=== PATIENT | male | born 1975 | race Caucasian/White ===

== ENCOUNTER 2018-03-02 09:03 | Day surgery (SDC) | payer OTHER ==
[~2018-03-02 09:03] MED LIST: CEFAZOLIN 2 GM/50 ML (PMX) 50 ML IVPB; SOD CHLORIDE 0.9% 1,000 ML IV
[2018-03-02] MEDS ORDERED: FENTAnyl 50 MCG/ML VIAL IV ×3 (10:00)
[2018-03-02] MEDS ORDERED: OXYCODONE/ACETAMINOPHEN (5/325) TAB PO ×3 (10:00→12:30)
[2018-03-02] MEDS ORDERED: ALBUTEROL 0.083% (NEB) 2.5 MG/3 ML AMP HHN (10:00)
[2018-03-02] MEDS ORDERED: METOCLOPRAMIDE 10 MG INJ IV (10:00)
[2018-03-02] MEDS ORDERED: DIPHENHYDRAMINE 50 MG INJ IV (10:00)
[2018-03-02] MEDS ORDERED: HYDROmorphONE 1 MG/5 ML IV SYRINGE IV (10:00)
[2018-03-02] MEDS ORDERED: ROPIVACAINE 0.5 % 30 ML VIAL (10:12)
[2018-03-02] MEDS ORDERED: FENTAnyl 50 MCG/ML VIAL ×5 (10:12→11:43)
[2018-03-02] MEDS ORDERED: MIDAZOLAM 1 MG/ML 2 ML INJ (10:19)
[2018-03-02] MEDS ORDERED: LABETALOL HCL 20MG INJ (10:34)
[2018-03-02] MEDS ORDERED: LIDOCAINE 100 MG SYRINGE (10:34)
[2018-03-02] MEDS ORDERED: ROCURONIUM 50 MG INJ (10:34)
[2018-03-02] MEDS ORDERED: SUCCINYLCHOLINE CHLORIDE 100 MG/5 ML SYG IV (10:34)
[2018-03-02] MEDS ORDERED: CEFAZOLIN 1 GM INJ (10:34)
[2018-03-02] MEDS: POLYMYXIN/BACITRACIN 1L IRRIG IRR ×2 (10:43→12:40)
[2018-03-02] MEDS ORDERED: POLYMYXIN/BACITRACIN 1L IRRIG (10:54)
[2018-03-02] MEDS ORDERED: HYDROmorphONE 2 MG/ML SYG (12:04)
[2018-03-02] MEDS ORDERED: morphine 2 MG INJ IV (12:30)
[2018-03-02] MEDS ORDERED: IBUPROFEN 600 MG TAB PO (12:30)
[2018-03-02] MEDS ORDERED: ONDANSETRON 4 MG INJ IV (12:30)
[2018-03-02] MEDS ORDERED: KETOROLAC 30 MG INJ IV (12:30)
[2018-03-02] MEDS: BUPIVACAINE 0.5%/EPI (SDV) 30 ML INJ (12:40)
[2018-03-02] MEDS: ONDANSETRON 4 MG INJ IV (12:51)
[2018-03-02] MEDS: HYDROmorphONE 1 MG/5 ML IV SYRINGE IV ×2 (12:51→12:59)
[2018-03-02] MEDS: MEPERIDINE 25 MG INJ IV (12:52)
== END 2018-03-02 16:52 | disposition home or self-care (01) ==
LOC: SDS 09:03
DX: K40.20 Bilateral inguinal hernia, without obstruction or gangrene, not specified as recurrent (principal)
CPT/HCPCS: 49650